=== PATIENT | male | born 1965 | race Caucasian/White ===

== ENCOUNTER 2022-03-09 11:41 | Observation (INO) | payer OTHER, SELFPAY ==
[2022-03-09 12:38] LABS: #Basophils 0.1 10x3/uL (0.0-0.2); #Monocytes 0.8 10x3/uL (0.0-1.1); #Neutrophils 9.1 10x3/uL (1.5-8.4); %Basophils 0.5 % (0.0-2.0); %Eosinophils 0.3 % (0.0-6.0); %Lymphocytes 13.5 % (18.0-47.0); %Monocytes 6.6 % (0.0-10.0); %Neutrophils 78.8 % (40.0-75.0); Hemoglobin 14.8 g/dL (13.5-17.5); Mean Corpuscular HGB CONC 33.4 g/dL (32.0-36.0); Mean Corpuscular Hemoglobin 30.3 pg (27.0-33.0); Mean Corpuscular Volume 90.6 fl (81.2-95.1); Mean Platelet Volume 10.8 fl (7.4-10.4); Platelet Count 210 10x3/uL (150-450); RBC Distribution Width 13.5 % (11.5-14.5); Red Blood Cell (RBC) Count 4.89 10x6/uL (4.32-5.72); White Blood Cell (WBC) Count 11.6 10x3/uL (3.5-10.5)
[2022-03-09 12:57] LABS: ALT (SGPT) 35 U/L (8-55); AST (SGOT) 35 U/L (5-34); Albumin 4.7 g/dL (3.5-5.0); Alkaline Phosphatase 46 U/L (40-110); Anion Gap 13 mmol/L (10-20); BUN (Urea Nitrogen) 19 mg/dL (8.4-25.7); Bilirubin, Total 0.5 mg/dL (0.2-1.2); Calc. Creatinine Clearance 0 mL/min (70-130); Calcium 9.3 mg/dL (7.8-10.44); Carbon Dioxide 24 mmol/L (22-29); Chloride 108 mmol/L (98-107); Estimated GFR 93; Globulin 2.4 g/dL (2.4-3.5); Glucose 94 mg/dL (70-105); Potassium 4.4 mmol/L (3.5-5.1); Protein, Total 7.1 g/dL (6.0-8.3); Sodium 141 mmol/L (136-145)
[2022-03-09 13:18] LABS: CKMB 5.1 ng/mL (0-6.6)
[2022-03-09 16:16] LABS: Troponin I 0.047 ng/mL (< 0.028)
[2022-03-09] MEDS ORDERED: Acetaminophen 325 MG TAB PO PRN (16:42)
[2022-03-09] MEDS ORDERED: Ondansetron PF 4 MG/2 ML Vial IVP PRN (16:42)
[2022-03-09] MEDS ORDERED: Ondansetron ODT 4 MG TAB PO PRN (16:42)
[2022-03-09] MEDS ORDERED: Acetaminophen 650 MG Suppository PR PRN (16:42)
[2022-03-09 18:12] VITALS: BMI 28.5
[2022-03-09 19:29] LABS: Troponin I 0.037 ng/mL (< 0.028)
[2022-03-09] MEDS ORDERED: QUEtiapine 100 MG TAB PO SCH (21:00)
[2022-03-10 04:58] LABS: #Eosinphils 0.2 10x3/uL (0.0-0.5); #Monocytes 0.6 10x3/uL (0.0-1.1); #Neutrophils 4.3 10x3/uL (1.5-8.4); %Basophils 0.5 % (0.0-2.0); %Eosinophils 2.1 % (0.0-6.0); %Lymphocytes 32.4 % (18.0-47.0); %Monocytes 8.3 % (0.0-10.0); %Neutrophils 56.4 % (40.0-75.0); Mean Corpuscular HGB CONC 33.5 g/dL (32.0-36.0); Mean Corpuscular Hemoglobin 30.2 pg (27.0-33.0); Mean Corpuscular Volume 90.3 fl (81.2-95.1); Mean Platelet Volume 11.1 fl (7.4-10.4); Platelet Count 205 10x3/uL (150-450); RBC Distribution Width 13.6 % (11.5-14.5); Red Blood Cell (RBC) Count 4.63 10x6/uL (4.32-5.72); White Blood Cell (WBC) Count 7.7 10x3/uL (3.5-10.5)
[2022-03-10 05:22] LABS: Anion Gap 12 mmol/L (10-20); BUN (Urea Nitrogen) 17 mg/dL (8.4-25.7); Calc. Creatinine Clearance 117 mL/min (70-130); Calcium 9.8 mg/dL (7.8-10.44); Carbon Dioxide 28 mmol/L (22-29); Cardiac Risk 3.7 (Less than 4.5); Chloride 108 mmol/L (98-107); Cholesterol 136 mg/dl (< 200 Desired); Estimated GFR 95; Glucose 78 mg/dL (70-105); HDL Cholesterol 37 mg/dL (>60 Neg Risk); LDL Cholesterol, Calculated 77 mg/dL; Potassium 4.5 mmol/L (3.5-5.1); Sodium 143 mmol/L (136-145); Triglycerides 112 mg/dL (Less than 150)
[2022-03-10] MEDS ORDERED: DULoxetine 30 MG CAP PO SCH (09:00)
[2022-03-10] MEDS ORDERED: Atorvastatin Calcium 20 MG TAB PO SCH ×2 (09:00→21:00)
[2022-03-10] MEDS ORDERED: Aspirin Chewable 81 MG TAB PO SCH (09:00)
[2022-03-10] MEDS ORDERED: Clopidogrel Bisulfate 75 MG TAB PO SCH (09:00)
[2022-03-10] MEDS ORDERED: Multivitamin W/ Minerals 1 TAB PO SCH (09:00)
[2022-03-10 14:06] VITALS: BP 137/77; TEMP 97.7
[2022-03-10] MEDS ORDERED: QUEtiapine 100 MG TAB PO SCH (21:00)
== END 2022-03-10 15:52 | disposition home or self-care (01) ==
LOC: CSHERS 11:41 → CSHTELE 14:15
PROVIDERS: ADMIT Internal Medicine; ATTEND Physician Assistant
DX: R07.2 Precordial pain (principal); I10 Essential (primary) hypertension; E78.5 Hyperlipidemia, unspecified; I25.10 Atherosclerotic heart disease of native coronary artery without angina pectoris; K21.9 Gastro-esophageal reflux disease without esophagitis; I73.9 Peripheral vascular disease, unspecified; Z20.822 Contact with and (suspected) exposure to COVID-19; Z79.82 Long term (current) use of aspirin; Z79.02 Long term (current) use of antithrombotics/antiplatelets; Z79.899 Other long term (current) drug therapy
CPT/HCPCS: 36415; 36416; 71045; 80048; 80053; 80061; 82553; 84484; 85025; 87811; 93005; 93010; 93306; G0378